=== PATIENT | male | born 2000 | race Hispanic/Latino ===

== ENCOUNTER 2022-01-24 10:07 | Emergency (ER) | payer SELFPAY ==
[2022-01-24] MEDS ORDERED: Ondansetron PF 4 MG/2 ML Vial ONE (11:17)
[2022-01-24] MEDS ORDERED: Mag-Al Plus 1200 MG/1200 MG/120 MG/30 ML UDCUP ONE (11:17)
[2022-01-24] MEDS ORDERED: Ketorolac Tromethamine 30 MG/ML VIAL ONE (11:17)
[2022-01-24] MEDS ORDERED: Dicyclomine 20 MG/2 ML VIAL ONE (11:17)
[2022-01-24] MEDS ORDERED: Lactated Ringer's 1,000 ML ONE (11:17)
[2022-01-24 11:40] LABS: Hemoglobin 17.3 g/dL (14.0-18.0); Mean Corpuscular HGB CONC 33.3 g/dL (32.0-36.0); Mean Corpuscular Hemoglobin 29.3 pg (27.0-31.0); Mean Corpuscular Volume 87.9 fL (78.0-98.0); Mean Platelet Volume 10.7 fL (7.4-10.4); Platelet Count 212 thou/uL (130-400); RBC Distribution Width 10.7 % (11.5-14.5); Red Blood Cell (RBC) Count 5.91 mill/uL (4.70-6.10)
[2022-01-24 11:46] LABS: ALT (SGPT) 19 U/L (8-55); AST (SGOT) 20 U/L (5-34); Albumin 5.2 g/dL (3.5-5.0); Alkaline Phosphatase 66 U/L (40-110); Anion Gap 21 mmol/L (10-20); BUN (Urea Nitrogen) 18 mg/dL (8.9-20.6); Bilirubin, Total 2.6 mg/dL (0.2-1.2); Calc. Creatinine Clearance 0 mL/min (70-130); Calcium 10.6 mg/dL (7.8-10.44); Carbon Dioxide 23 mmol/L (22-29); Chloride 99 mmol/L (98-107); Globulin 3.1 g/dL (2.4-3.5); Glucose 155 mg/dL (70-105); Lipase 6 U/L (8-78); Magnesium 1.6 mg/dL (1.6-2.6); Potassium 3.6 mmol/L (3.5-5.1); Protein, Total 8.3 g/dL (6.0-8.3); Sodium 139 mmol/L (136-145)
[2022-01-24 12:04] LABS: Band 2 % (5-11); Lymphocytes 3 % (21-51); MDiff Complete? YES; Monocytes 4 % (0-10); Neutrophil 88 % (42-75); Reactive Lymphocytes 3 % (0-10)
[2022-01-24] MEDS ORDERED: Azithromycin 250 MG TAB ONE (12:47)
== END 2022-01-24 12:55 | disposition home or self-care (01) ==
LOC: MADERS 10:07
DX: E83.52 Hypercalcemia (principal); R11.10 Vomiting, unspecified; R19.7 Diarrhea, unspecified; D72.829 Elevated white blood cell count, unspecified; E80.7 Disorder of bilirubin metabolism, unspecified
CPT/HCPCS: 36415; 80053; 83690; 83735; 85025; 94760; 96361; 96372; 96374; 96375; J0500; J1885; J2405; J7120